=== PATIENT | male | born 1985 | race Caucasian/White ===

== ENCOUNTER 2022-04-04 08:07 | Outpatient (CLI) | payer OTHER, MEDICAID | END 2022-04-04 18:18 | disposition home or self-care (01) | LOC: SNM 08:07 | PROVIDERS: ATTEND Internal Medicine | DX: K31.84 Gastroparesis (principal) | CPT/HCPCS: 78264; A9541 ==

== ENCOUNTER 2022-04-06 07:11 | Outpatient (CLI) | payer OTHER, MEDICAID ==
[~2022-04-06] VITALS: Ht 170.2 cm; Wt 69.9 kg
== END 2022-04-06 20:57 | disposition home or self-care (01) ==
LOC: SUS 07:11
PROVIDERS: ATTEND Family Medicine
DX: R18.8 Other ascites (principal); Z20.822 Contact with and (suspected) exposure to COVID-19
CPT/HCPCS: 36415; 49083; U0003

== ENCOUNTER 2022-04-16 09:07 | Outpatient (CLI) | payer OTHER, MEDICAID | END 2022-04-16 16:00 | disposition home or self-care (01) | LOC: SUS 09:07 | PROVIDERS: ATTEND Family Medicine | DX: R18.8 Other ascites (principal) | CPT/HCPCS: 49083 ==

== ENCOUNTER 2022-04-26 10:54 | Outpatient (CLI) | payer OTHER, MEDICAID ==
[2022-04-26] MEDS ORDERED: LIDOCAINE 1%, 20 ML MDV 20 ML ONE (11:01)
== END 2022-04-26 17:00 | disposition home or self-care (01) ==
LOC: SUS 10:54 → EDSTATUS 04-27 09:00
PROVIDERS: ATTEND Family Medicine
DX: R18.8 Other ascites (principal)
CPT/HCPCS: 49083; J2001

== ENCOUNTER 2022-05-03 09:43 | Outpatient (CLI) | payer OTHER, MEDICAID ==
[2022-05-03] MEDS ORDERED: LIDOCAINE 1%, 20 ML MDV 20 ML ONE (11:09)
== END 2022-05-09 18:18 | disposition home or self-care (01) ==
LOC: SUS 09:43 → EDSTATUS 10:30 → SUS 05-09 18:18
PROVIDERS: ATTEND Family Medicine
DX: R18.8 Other ascites (principal)
CPT/HCPCS: 49083; J2001

== ENCOUNTER 2022-05-14 08:44 | Outpatient (CLI) | payer OTHER, MEDICAID ==
[2022-05-14] MEDS ORDERED: LIDOCAINE 1%, 20 ML MDV 20 ML ONE (09:35)
== END 2022-05-14 16:00 | disposition home or self-care (01) ==
LOC: SDS 08:44 → SUS 08:44 → SMU 08:47 → SDS 08:47 → EDSTATUS 10:00 → SUS 16:00
PROVIDERS: ATTEND Family Medicine
DX: R18.8 Other ascites (principal)
CPT/HCPCS: 49083; J2001

== ENCOUNTER 2022-05-20 16:38 | Observation (INO) | payer OTHER, MEDICAID ==
[~2022-05-20] VITALS: Ht 160 cm; Wt 62.6 kg
[2022-05-20 16:55] VITALS: BP_SYST 135
[2022-05-20 17:28] LABS: MEAN CORPUSCULAR HEMOGLOBIN 22 pg (27-31); MEAN CORPUSCULAR HGB CONC 32 % (32-36); MEAN CORPUSCULAR VOLUME 68 fL (79.0-98.0); PLATELET COUNT (AUTO) 72 K/uL (130-430); RED BLOOD CELL COUNT(AUTO) 3.02 MIL/uL (4.2-6.2); RED CELL DISTRIBUTION WIDTH 19.7 % (9.0-15.0)
[2022-05-20 17:44] LABS: WHITE BLOOD COUNT (AUTO) 1.2 K/uL (4.8-10.8)
[2022-05-20 17:45] LABS: HEMATOCRIT 20.6 % (36-54); HEMOGLOBIN 6.7 g/dL (14.0-18.0)
[2022-05-20] MEDS ORDERED: VITD2000 PO (18:03)
[2022-05-20] MEDS ORDERED: INSU100V42 SQ (18:03)
[2022-05-20] MEDS ORDERED: SPIR100T5 PO (18:03)
[2022-05-20] MEDS ORDERED: MIDO10TA PO (18:03)
[2022-05-20] MEDS ORDERED: FURO-149 PO (18:03)
[2022-05-20] MEDS ORDERED: INSU300I3 SQ (18:03)
[2022-05-20] MEDS ORDERED: PROP10TA10 PO (18:03)
[2022-05-20] MEDS ORDERED: NEU300 PO (18:03)
[2022-05-20 18:18] LABS: BAND % (MANUAL) 2 % (0-6); BASOPHILS % (MANUAL) 0 % (0-2); EOSINOPHILS % (MANUAL) 1 % (0-7); LYMPHOCYTES % (MANUAL) 27 % (20-46); MONOCYTES % (MANUAL) 16 % (0-11)
[2022-05-20 18:29] LABS: CALCIUM 8.3 mg/dL (8.4-11.0); CREATININE 1.72 mg/dL (0.55-1.30); POTASSIUM 3.9 mmol/L (3.5-5.1)
[2022-05-20 18:32] LABS: ALBUMIN 2.6 g/dL (3.4-4.8); TOTAL BILIRUBIN 0.5 mg/dL (0.0-1.0)
[2022-05-20] MEDS ORDERED: DIPHENHYDRAMINE INJ 50 MG/ML VIAL IVP ONE (19:15)
[2022-05-20] MEDS ORDERED: ACETAMINOPHEN 500 MG TABLET PO ONE (19:15)
[2022-05-20] MEDS: MIDODRINE HCL 5 MG TABLET (PROAMATINE) PO SCH (21:00)
[2022-05-20] MEDS ORDERED: DIPHENHYDRAMINE INJ 50 MG/ML VIAL ONE (22:52)
[2022-05-20] MEDS: NORMAL SALINE 5 ML DISP.SYRIN IVF SCH (23:13)
[2022-05-21 05:15] VITALS: BP_SYST 119
[2022-05-21] MEDS: NORMAL SALINE 5 ML DISP.SYRIN IVF SCH (06:20)
[2022-05-21 06:52] LABS: BASOPHILS % (AUTO) 3.1 % (0.0-2.0); EOSINOPHILS # (AUTO) 0.1 K/uL (0.0-0.4); EOSINOPHILS % (AUTO) 4.4 % (0.0-4.0); HEMOGLOBIN 7.7 g/dL (14.0-18.0); LYMPHOCYTES # (AUTO) 0.3 K/uL (1.0-5.5); LYMPHOCYTES % (AUTO) 28.4 % (20.5-51.5); MEAN CORPUSCULAR HEMOGLOBIN 23 pg (27-31); MEAN CORPUSCULAR HGB CONC 34 % (32-36); MEAN CORPUSCULAR VOLUME 70 fL (79.0-98.0); MONOCYTES # (AUTO) 0.2 K/uL (0.0-1.0); MONOCYTES % (AUTO) 17.6 % (1.7-9.3); NEUTROPHILS % (AUTO) 46.5 % (40.0-70.0); PLATELET COUNT (AUTO) 66 K/uL (130-430); RED BLOOD CELL COUNT(AUTO) 3.29 MIL/uL (4.2-6.2); RED CELL DISTRIBUTION WIDTH 20.6 % (9.0-15.0)
[2022-05-21 07:27] LABS: CALCIUM 8.2 mg/dL (8.4-11.0); CREATININE 1.53 mg/dL (0.55-1.30); POTASSIUM 3.6 mmol/L (3.5-5.1)
[2022-05-21 07:43] LABS: ALBUMIN 2.7 g/dL (3.4-4.8)
[2022-05-21 07:44] LABS: NEUTROPHILS # (AUTO) 0.6 K/uL (1.8-7.7)
[2022-05-21 07:46] LABS: WHITE BLOOD COUNT (AUTO) 1.2 K/uL (4.8-10.8)
[2022-05-21 07:49] VITALS: BP_SYST 117
[2022-05-21] MEDS ORDERED: LIDOCAINE 1%, 20 ML MDV 20 ML ONE (08:43)
[2022-05-21] MEDS: MIDODRINE HCL 5 MG TABLET (PROAMATINE) PO SCH (09:48)
[2022-05-21] MEDS ORDERED: INSULIN LISPRO SLIDING SCALE 100 UNITS/ML VIAL (humaLOG) SUBCUT PRN (10:15)
[2022-05-21 11:00] VITALS: BP_SYST 126
[2022-05-21 13:57] VITALS: BP_SYST 132
[2022-05-21 15:25] VITALS: BP_SYST 130
[2022-05-21 16:08] LABS: MEAN CORPUSCULAR HEMOGLOBIN 23 pg (27-31)
[2022-05-21 16:14] LABS: HEMATOCRIT 27.4 % (36-54); HEMOGLOBIN 8.9 g/dL (14.0-18.0); MEAN CORPUSCULAR HGB CONC 33 % (32-36); MEAN CORPUSCULAR VOLUME 71 fL (79.0-98.0); PLATELET COUNT (AUTO) 67 K/uL (130-430); RED BLOOD CELL COUNT(AUTO) 3.87 MIL/uL (4.2-6.2)
[2022-05-21 16:19] LABS: WHITE BLOOD COUNT (AUTO) 1.3 K/uL (4.8-10.8)
[2022-05-21 16:41] LABS: BAND % (MANUAL) 0 % (0-6); BASOPHILS % (MANUAL) 0 % (0-2); EOSINOPHILS % (MANUAL) 3 % (0-7); LYMPHOCYTES % (MANUAL) 23 % (20-46); MONOCYTES % (MANUAL) 15 % (0-11)
[2022-05-21] MEDS ORDERED: MIDO5TAB4 PO (16:45)
[2022-05-21 17:27] VITALS: BP_SYST 136
[2022-05-21] MEDS ORDERED: INSULIN GLARGINE 100 UNITS/ML 10 ML VIAL SUBCUT SCH (21:00)
== END 2022-05-21 17:59 | disposition home or self-care (01) ==
LOC: SED 16:38 → SMU 18:50
PROVIDERS: ADMIT Internal Medicine; ATTEND Internal Medicine
DX: K74.60 Unspecified cirrhosis of liver (principal); Z20.822 Contact with and (suspected) exposure to COVID-19; D62 Acute posthemorrhagic anemia; E11.9 Type 2 diabetes mellitus without complications; R18.8 Other ascites; J90 Pleural effusion, not elsewhere classified; D69.6 Thrombocytopenia, unspecified; Z79.899 Other long term (current) drug therapy
CPT/HCPCS: 96374; 85027 ×2; 80053 ×2; 85007; 86886; 86900; 86901; 86920; 36415 ×2; 99284; 36430 ×2; 87426; 96372; 82962; 85025; 71045; 49083; P9021 ×2; J1200; G0378 ×2; J2001; J1815